=== PATIENT | male | born 1960 | race Caucasian/White ===

== ENCOUNTER → 2017-05-05 | Outpatient (CLI) | payer BC, OTHER ==
--- NOTE | 2017-05-05 16:35 | DIAGNOSTIC IMAGING REPORT ---
TWO VIEW CHEST CLINICAL HISTORY: Paroxysmal nocturnal dyspnea. FINDINGS: PA and lateral chest radiographs are obtained. No prior studies are available for comparison at the time of dictation. The cardiomediastinal silhouette is unremarkable. There is mild elevation of the right hemidiaphragm. The lungs and pleural spaces are clear. There is no pneumothorax. The bony thorax appears intact. IMPRESSION: No active disease in the chest. Electronically signed by: Sherman Flowers M.D. 05/05/2017 4:34 PM Dictated Date/Time: 05/05/2017 4:34 PM
== END | disposition home or self-care (01) ==
LOC: C.RAD 16:03
PROVIDERS: ATTEND Family Medicine
DX: R06.01 Orthopnea (principal); R06.00 Dyspnea, unspecified

== ENCOUNTER → 2017-10-20 | Outpatient (CLI) | payer OTHER | END | disposition home or self-care (01) | LOC: C.PATHSPEC 17:57 | PROVIDERS: ATTEND Family Medicine | DX: D22.9 Melanocytic nevi, unspecified (principal) ==

== ENCOUNTER 2018-02-16 04:04 | Emergency (ER) | payer OTHER ==
[~2018-02-16] VITALS: Ht 180.3 cm; Wt 92.2 kg
[2018-02-16 04:14] VITALS: TEMP 36.6; Ht 180.3 cm; Wt 92.2 kg
[2018-02-16] MEDS ORDERED: KETOROLAC TROMETHAMINE 30 MG/ML VIAL ONE (04:35)
[2018-02-16] MEDS ORDERED: ONDANSETRON INJ 2 MG/ML 2 ML VIAL ONE (04:35)
[2018-02-16] MEDS ORDERED: ONDANSETRON INJ 2 MG/ML 2 ML VIAL IV STA (04:40)
[2018-02-16] MEDS ORDERED: HYDROmorphone INJ 0.5 MG/0.5 ML SYR IV STA ×2 (04:40→06:01)
[2018-02-16] MEDS ORDERED: KETOROLAC TROMETHAMINE 30 MG/ML VIAL IV STA (04:40)
[2018-02-16] MEDS ORDERED: SODIUM CHLORIDE 0.9% 1000ML 1,000 ML IV ONE ×2 (04:45→05:45)
[2018-02-16 04:48] LABS: EOS % 0.2 %; EOS ABS # 0.03 K/uL (0-0.5); HEMATOCRIT 40.7 % (42-52); HEMOGLOBIN 14.7 g/dL (14.0-18.0); IG# 0.03 K/uL (0.00-0.02); LYMPH % 9.6 %; LYMPH ABS # 1.18 K/uL (1.2-3.4); MEAN CELL VOLUME 88.1 fL (80-100); MEAN CORPUSCULAR HEMOGLOBIN 31.8 pg (25-34); MEAN CORPUSCULAR HGB CONC 36.1 g/dl (32-36); MEAN PLATELET VOLUME 9.1 fL (7.4-10.4); MONO % 7.6 %; MONO ABS # 0.94 K/uL (0.11-0.59); NEUT % 82.4 %; NEUT ABS # 10.14 K/uL (1.4-6.5); PLATELET COUNT 216 K/uL (130-400); RED CELL DISTRIBUTION WIDTH CV 13.4 % (11.5-14.5); RED CELL DISTRIBUTION WIDTH SD 43.2 fL (36.4-46.3); WHITE BLOOD COUNT 12.32 K/uL (4.8-10.8)
[2018-02-16 05:09] LABS: ALBUMIN 4.3 gm/dl (3.4-5.0); CALCIUM 8.3 mg/dl (8.5-10.1); CREATININE 1.53 mg/dl (0.60-1.40); POTASSIUM 3.9 mmol/L (3.5-5.1); TOTAL PROTEIN 8.1 gm/dl (6.4-8.2)
[2018-02-16] MEDS ORDERED: LEVO150T9 PO (05:24)
[2018-02-16] MEDS ORDERED: METF1TAB53 PO (05:25)
[2018-02-16] MEDS ORDERED: ASPI1TAB48 PO (05:25)
[2018-02-16] MEDS ORDERED: OMEG10007 PO (05:26)
[2018-02-16] MEDS ORDERED: VTME100 PO (05:27)
[2018-02-16] MEDS ORDERED: OXYC-737 PO (06:02)
[2018-02-16 06:59] VITALS: BP 124/65; PULSE 90; O2SAT 95
--- NOTE | 2018-02-16 07:47 | EMERGENCY ROOM VISIT NOTE ---
History First contact with patient: 04:18 Chief Complaint: KIDNEY STONE Stated Complaint: KIDNEY STONE History of Present Illness The patient is a 58 year old male who presents to the Emergency Room with complaints of left flank pain worsening over the past 6 hours. The patient was seen about 24 hours ago at [facility] where he was diagnosed with a 2-3 mm distal ureteral calculi. The patient was given Percocet, Flomax, and Zofran to use at home. He was given information to follow-up with urology. The patient has been taking the Percocet 1 pill every 6 hours, and this has not adequately controlled his pain. He rates his current discomfort in 02/19. He did have vomiting just prior to arrival here in the department. The patient is diabetic but states that his sugars have been running in the 150s. He is accompanied by his . The patient does not have additional complaints such as fever Review of Systems More than 10 systems were reviewed and otherwise negative with the exception of history of present illness. Past Medical/Surgical History Ureteral calculi, diabetes Family History No pertinent family history Social History Smoking Status: Never Smoker Housing Status: lives with family Occupation Status: employed Current/Historical Medications Scheduled Aspirin (Aspirin Low Dose), 81 MG PO DAILY Fish Oil (Union-3), 1 CAP PO DAILY Levothyroxine Sodium (Levothyroxine Sodium), 150 MCG PO DAILY Metformin Hcl (Glucophage Ext Rel), 1,000 MG PO BID Oxycodone Immediate Rel Tab (Roxicodone Ir), 1-2 TAB PO Q4H Tocopheryl Acet,Dl-Alpha (Vitamin E), 1 CAP PO DAILY Physical Exam Vital Signs Date Time Temp Pulse Resp B/P (MAP) Pulse Ox O2 Delivery O2 Flow Rate FiO2 02/16/18 06:59 90 17 124/65 95 02/16/18 06:39 100 18 147/82 95 Room Air 02/16/18 06:09 100 94 02/16/18 05:39 87 16 91 02/16/18 05:34 98 16 91 02/16/18 05:31 174/96 02/16/18 05:04 87 12 94 02/16/18 05:01 88 02/16/18 05:01 170/80 02/16/18 04:51 170/108 02/16/18 04:14 36.6 88 20 200/100 96 Room Air Physical Exam VITALS: Vitals are noted on the nurse's note and reviewed by myself. Vital signs stable. GENERAL: Well-developed, well-nourished, white male, who appears in moderate discomfort. He is pacing back and forth in his emergency department room. NECK: Supple without nuchal rigidity. No lymphadenopathy. No thyromegaly. Cervical spine is nontender. HEART: Regular rate and rhythm without murmurs gallops or rubs. LUNGS: Clear to auscultation bilaterally without wheezes, rales or rhonchi. No retractions or accessory muscle use. ABDOMEN: Positive normal bowel sounds x 4. Soft, nontender, without masses or organomegaly. No guarding or rebound tenderness. No CVA tenderness. MUSCULOSKELETAL: No muscle atrophy, erythema, or edema noted. Full range of motion in all extremities. Medical Decision & Procedures Laboratory Results 02/16/18 04:25 Red Blood Count 4.62, Mean Corpuscular Volume 88.1, Mean Corpuscular Hemoglobin 31.8, Mean Corpuscular Hemoglobin Concent 36.1, Mean Platelet Volume 9.1, Neutrophils (%) (Auto) 82.4, Lymphocytes (%) (Auto) 9.6, Monocytes (%) (Auto) 7.6, Eosinophils (%) (Auto) 0.2, Basophils (%) (Auto) 0.0, Neutrophils # (Auto) 10.14, Lymphocytes # (Auto) 1.18, Monocytes # (Auto) 0.94, Eosinophils # (Auto) 0.03, Basophils # (Auto) 0.00 02/16/18 04:25 Test 02/16/18 04:25 White Blood Count 12.32 K/uL (4.8-10.8) Red Blood Count 4.62 M/uL (4.7-6.1) Hemoglobin 14.7 g/dL (14.0-18.0) Hematocrit 40.7 % (42-52) Mean Corpuscular Volume 88.1 fL (80-100) Mean Corpuscular Hemoglobin 31.8 pg (25-34) Mean Corpuscular Hemoglobin Concent 36.1 g/dl (32-36) Platelet Count 216 K/uL (130-400) Mean Platelet Volume 9.1 fL (7.4-10.4) Neutrophils (%) (Auto) 82.4 % Lymphocytes (%) (Auto) 9.6 % Monocytes (%) (Auto) 7.6 % Eosinophils (%) (Auto) 0.2 % Basophils (%) (Auto) 0.0 % Neutrophils # (Auto) 10.14 K/uL (1.4-6.5) Lymphocytes # (Auto) 1.18 K/uL (1.2-3.4) Monocytes # (Auto) 0.94 K/uL (0.11-0.59) Eosinophils # (Auto) 0.03 K/uL (0-0.5) Basophils # (Auto) 0.00 K/uL (0-0.2) RDW Standard Deviation 43.2 fL (36.4-46.3) RDW Coefficient of Variation 13.4 % (11.5-14.5) Immature Granulocyte % (Auto) 0.2 % Immature Granulocyte # (Auto) 0.03 K/uL (0.00-0.02) Urine Color YELLOW Urine Appearance CLEAR (CLEAR) Urine pH 5.0 (4.5-7.5) Urine Specific [place] 1.023 (1.000-1.030) Urine Protein NEG (NEG) Urine Glucose (UA) 3+ (NEG) Urine Ketones 1+ (NEG) Urine Occult Blood 1+ (NEG) Urine Nitrite NEG (NEG) Urine Bilirubin NEG (NEG) Urine Urobilinogen NEG (NEG) Urine Leukocyte Esterase NEG (NEG) Urine WBC (Auto) 0 /hpf (0-5) Urine RBC (Auto) 5-10 /hpf (0-4) Urine Hyaline Casts (Auto) 0 /lpf (0-5) Urine Epithelial Cells (Auto) 0-5 /lpf (0-5) Urine Bacteria (Auto) NEG (NEG) Anion Gap 11.0 mmol/L (3-11) Est Creatinine Clear Calc Drug Dose 61.1 ml/min Estimated GFR () 57.2 Estimated GFR (Non- 49.4 BUN/Creatinine Ratio 12.2 (10-20) Calcium Level 8.3 mg/dl (8.5-10.1) Total Bilirubin 1.5 mg/dl (0.2-1) Aspartate Amino Transf (AST/SGOT) 16 U/L (15-37) Alanine Aminotransferase (ALT/SGPT) 31 U/L (12-78) Alkaline Phosphatase 51 U/L (45-117) Total Protein 8.1 gm/dl (6.4-8.2) Albumin 4.3 gm/dl (3.4-5.0) Globulin 3.8 gm/dl (2.5-4.0) Albumin/Globulin Ratio 1.1 (0.9-2) Lipase 156 U/L (73-393) Medications Administered Medications (Trade) Dose Ordered Sig/Elian Route Start Time Stop Time Status Last Admin Dose Admin Ketorolac Tromethamine (Toradol Inj) 30 mg STK-MED ONCE .ROUTE 02/16/18 04:35 02/16/18 04:36 DC 02/16/18 04:38 30 MG Ondansetron HCl (Zofran Inj) 4 mg STK-MED ONCE .ROUTE 02/16/18 04:35 02/16/18 04:36 DC 02/16/18 04:41 4 MG Sodium Chloride 1,000 ml @ 999 mls/hr Q1H1M ONCE IV 02/16/18 04:45 02/16/18 05:45 DC 02/16/18 04:35 999 MLS/HR Hydromorphone HCl (Dilaudid Inj) 0.5 mg NOW STAT IV 02/16/18 04:40 02/16/18 04:41 DC 02/16/18 04:54 0.5 MG Sodium Chloride 1,000 ml @ 999 mls/hr Q1H1M ONCE IV 02/16/18 05:45 02/16/18 06:45 DC 02/16/18 05:54 999 MLS/HR Hydromorphone HCl (Dilaudid Inj) 0.5 mg NOW STAT IV 02/16/18 06:01 02/16/18 06:02 DC 02/16/18 06:34 0.5 MG ED Course Physical exam and history were performed. Nursing notes, EMR, and Medication List were personally reviewed. Patient appears to have a left ureteral calculi identified on CT scan at [facility] yesterday. I was able to review the records and confirmed the CT showing a left distal 2-3 mm stone. The patient had essentially normal blood work and a sterile urine at that encounter. IV access was established and labs were obtained. The patient was hydrated and medicated as above. The patient's blood work is as above and was reviewed. He does have a very minimally elevated white blood cell count of 12,000, which is felt to be increased because of vomiting just prior to arrival. He does not have a gross anemia or significant electrolyte imbalance. He does have an elevated sugar of greater than 200. His urine does not appear with obvious infection. On reevaluation the patient felt significantly improved. We did have a lengthy discussion regarding his care, and overall he does feel well for discharge home. Evidently he had a bad experience at the [facility] ER, which is why he came to this facility today. He is currently taking his Percocet once every 6 hours, and I will increase this to 2 every 4-6 hours. The patient is to continue his medication otherwise and continue the plan to follow with urology for further care management. The patient was pleased with this and voiced understanding. He was discharged home under the care of his who is acting as a fork truck driver. The chart was completed utilizing [employer] Speech Voice Recognition Software. Grammatical errors, random word insertions, pronoun errors, and incomplete sentences are an occasional consequence of this system due to software limitations, ambient noise, and hardware issues. Any formal questions or concerns about the content, text, or information contained within the body of this dictation should be directly addressed to the provider for clarification. . Medical Decision Differential diagnosis: Etiologies such as renal colic, appendicitis, diverticulitis, mesenteric ischemia, aortic pathology, infections, inflammatory bowel disease, PUD, biliary pathology, UTI, as well as others were entertained. Impression Primary Impression: Left ureteral calculus Departure Information Dispostion Home / Self-Care Condition GOOD Prescriptions Oxycodone Immediate Rel Tab (ROXICODONE IR) 5 Mg Tab 1-2 TAB PO Q4H for Pain, #10 TAB Prov: Hero Dumont PA-C 02/16/18 Forms HOME CARE DOCUMENTATION FORM, Work Instructions, Additional Instructions: Patient was seen and evaluated today in the emergency department fo medical care. Return to work on 02/19/2018. Please excuse. IMPORTANT VISIT INFORMATION Patient Instructions My [facility] Additional Instructions You were seen and evaluated today on an emergency basis only. This is not a substitute for, or an effort to provide, complete comprehensive medical care. It is not possible to recognize and treat all injuries or illnesses in a single emergency department visit. For this reason it is recommended that you followup with Urology as previously instructed. For baseline pain relief you may alternate ibuprofen and acetaminophen every 4 hours for pain control. Take 600 mg ibuprofen (Advil) and then 4 hours later take 1000 mg acetaminophen (Tylenol). Do not take more than 3000 mg acetaminophen in a single day. Oxycodone (OxyIR) 5mg: Take ONE or TWO pills by mouth every FOUR to SIX hours for breakthrough pain. Avoid alcohol, operating machinery or dangerous equipment, working on ladders or roofs, DRIVING, or situations where being under the influence may be dangerous. It is recommended to use an over-the- counter stool softener such as Colace, 100mg twice daily while taking this medication to avoid constipation. Continue your Flomax and Zofran as previously prescribed. You are welcome to return to the emergency department anytime with new, worsening, or concerning symptoms. Work Instructions Additional Work Instructions: Patient was seen and evaluated today in the emergency department for medical care. Return to work on 02/19/2018. Please excuse.
== END 2018-02-16 07:00 | disposition home or self-care (01) ==
LOC: C.EDB 04:05 → C.EDC 07:00
DX: N20.1 Calculus of ureter (principal); E11.9 Type 2 diabetes mellitus without complications; Z79.84 Long term (current) use of oral hypoglycemic drugs; Z79.82 Long term (current) use of aspirin

== ENCOUNTER → 2018-03-04 | Outpatient (CLI) | payer OTHER ==
[~2018-03-04] MED LIST: ASPI1TAB48 PO; LEVO150T9 PO; METF1TAB53 PO; OMEG10007 PO; OXYC-737 PO; VTME100 PO
== END | disposition home or self-care (01) ==
LOC: C.LABMFLN 12:59
PROVIDERS: ATTEND Family Medicine
DX: L02.414 Cutaneous abscess of left upper limb (principal)